=== PATIENT | male | born 1955 | race Caucasian/White ===

== ENCOUNTER → 2025-04-06 | Outpatient (CLI) | payer MEDICARE, MEDICAID, SELFPAY ==
--- NOTE | 2025-04-06 07:30 | XR_ITS ---
Examination: CT chest, without intravenous contrast. Sagittal and coronal 2-D reconstructions. Exam date and time: August 23, 755 hours Comparison April 23, 2021 INDICATIONS: Diagnosis malignant neoplasm upper lobe right bronchus, shortness of breath, 9 mm pulmonary nodule right upper lobe 6 mm pulmonary nodule left lower lobe on CT chest April 23, 2021 CTDI:vol (mGy) 6.43 DLP: (mGycm) 266 Technique: Multiple 3.0 mm axial sections of the chest to been obtained. Bone and lung density settings are obtained. Sagittal and coronal 2-D reconstructions have been obtained. Low dose protocols were performed. One or more of the following dose reduction techniques were used; automated exposure control, adjustment of the mA and/or KV according to patient size, use of iterative reconstruction technique. Findings: No thoracic aortic aneurysmal dilatation Multiple pretracheal lymph nodes, the largest 12 mm Pulmonary artery segments are not enlarged Pulmonary mass with spiculated margins right upper lobe, at least 4.7 x 4.6 cm 2 mm pulmonary nodule left upper lobe image 104 8 mm pulmonary nodule in the right upper lobe image 225 6 mm pulmonary nodule right middle lobe image 3 12 mm pulmonary nodule right lower lobe image 281 COPD with multiple areas of air space destruction No visualized liver splenic lesion No pancreatic mass 2 mm upper pole right renal calculus Prominent osteopenia IMPRESSION: COPD Pulmonary neoplasm right upper lobe 4.7 x 4.6 cm Multiple likely metastatic pulmonary nodules
== END | disposition home or self-care (01) ==
LOC: CCTX 07:22
PROVIDERS: PCP Family Medicine; Referring Provider Family Medicine; Visit Provider Family Medicine
DX: C34.11 Malignant neoplasm of upper lobe, right bronchus or lung (principal); J44.9 Chronic obstructive pulmonary disease, unspecified
CPT/HCPCS: 71250

== ENCOUNTER 2025-07-26 11:52 | Emergency (ER) | payer MEDICARE, MEDICAID, SELFPAY ==
[2025-07-26 11:57] VITALS: PULSE 79; RESP 18; O2SAT 99
--- NOTE | 2025-07-26 11:57 | EDNOTE_ITS ---
ED General RME/HPI General Chief complaint: General Adult/Misc Complain Stated complaint: TB Time Seen by Provider: 07/26/25 11:54 Arrival date/time: 07/26/25 11:52 CC: Needs chest x-ray HPI patient presents to the ER from [facility] where there is been reported outbreak scabies bedbugs and TB. Patient had a positive mantaux test and was sent to the emergency room via EMS for chest x-ray. Patient has no specific complaints denies fever chills hemoptysis weight loss or night sweats. No other complaints. Related Data Home Medications ?Medication ?Instructions ?Recorded ?Confirmed clozapine 100 mg tablet See Rx Instructions PO HS 04/19/25 Allergies Allergy/AdvReac Type Severity Reaction Status Date / Time No Known Allergies Allergy Verified 07/26/25 12:08 Review of Systems Review of Systems Narrative Review of Systems: GEN: No fever, no chills, no weight loss EYES: No discharge, no visual changes, no pain HEENT: No ear pain, no congestion, no sore throat PULM: No shortness of breath, no cough, no congestion CV: No chest pain, no dyspnea on exertion, no palpitations GI: No nausea, no vomiting, no diarrhea, no pain, no constipation : No frequency, no urgency, no dysuria MUSC/SKEL: No joint pain, no back pain SKIN: No rash PSYCH: No hallucinations, no depression HEME/LYMPH: No easy bleeding or bruising tendencies NEURO: No weakness, no headache Past Medical History Past Medical History NEUROLOGIC: Negative Neurological Disorders CARDIAC: Positive Cardiac Disorders, Myocardial Infarction (07/2019-transfer to [facility]) and Hypercholesterolemia; Negative Congestive Heart Failure RESPIRATORY: Positive Chronic Obstructive Pulmonary Disease (COPD) GASTROINTESTINAL: Negative Gastrointestinal Disorders GENITOURINARY: Negative Genitourinary Disorders or Renal Disease MUSCULOSKELETAL: Positive Musculoskeletal Disorders (gets tired easily when walking) ENDOCRINE: Negative Endocrine Disorders, Diabetes Mellitus Type 1 or Diabetes Mellitus Type 2 HEMATOLOGIC: Negative Blood Disorders PSYCHO/SOCIAL: Positive Psychiatric Problems, Schizophrenia and Bipolar Disorder OTHER HISTORY: Negative Blood Transfusions, Anesthesia Reactions or Cancer Surgical History SURGICAL: Negative Endocrine Surgery or Abdominal Surgery Social History SMOKING STATUS: Current some day smoker SUBSTANCE USE: does not use ED Exam Narrative Physical exam: [General: Not in any acute distress Head normocephalic HEENT: Within acceptable limits Neck is supple nontender Chest equal chest rise nontender to palpation Respiratory: Clear to auscultation no wheezes crackles or rubs CV: Rate rhythm is regular no murmurs rubs or clicks Abdomen is soft nontender no masses positive bowel sounds all 4 quadrants Back: No CVA tenderness no spinous process tenderness from cervical spine thoracic and lumbar spine Skin: Intact no petechiae rash induration ulceration or crepitus Extremities: Moving all extremity against resistance cap refill less than 2 seconds neurosensory intact Neuro: Awake alert oriented x3 Glascow coma 15 no focal deficits] Course Course Course Narrative: Chest x-ray shows a mass we will now do a CT of this patient he is informed and will wait. Patient has no symptoms. Quality Measures none Orders Category Date Time Status CT chest wo con Stat Exams 07/26/25 13:08 Taken XR chest 2V Stat Exams 07/26/25 11:57 Completed Vital Signs Vital signs: Vital Signs Temperature 97.0 F 07/26/25 12:06 Pulse Rate 88 07/26/25 12:06 Respiratory Rate 18 07/26/25 12:06 Blood Pressure 116/40 L 07/26/25 12:06 Pulse Oximetry (%) 98 07/26/25 12:06 Oxygen Delivery Method Room Air 07/26/25 12:06 Discharge Plan Plan Patient Disposition: HOME (Self Care) Prescriptions/Referrals Prescriptions/Med Rec: No Action clozapine 100 mg tablet See Rx Instructions PO HS Rx Instructions: 700mg orally bedtime; Referrals: Fuad Sosa MD [Primary Care Provider] - In 1 week Problem List Clinical Impression: Squamous cell carcinoma, Lung mass Patient/Caregiver Discharge Instructions Other Activity Instructions:: In March 2025 you had a biopsy done of the mass in your lung and that is shows you have cancer in your lungs please follow-up with your primary care doctor. Print Language: Pakistani Stand Alone Forms: Alanis Award Info., Patient Portal Info Letter PA/ADMINISTRATIVE ASSISTANT RECEPTIONIST Supervising Physician PA/ADMINISTRATIVE ASSISTANT RECEPTIONIST Supervising Physician: Jak Brand ENP [facility] Clinical Information Provided by: patient and EMS Medical Records reviewed [facility] and EMS Meds/Rx considered, not ordered None Labs/Rad/Tests considered, not ordered None Chronic Illness/Social Conditions which may negatively complicate care or outcome(s)-explain: None or not applicable EKG EKG not done Labs Labs: none Imaging Imaging interpretation: interpreted by me
--- NOTE | 2025-07-26 11:57 | XR_ITS ---
EXAMINATION: PA lateral chest 2 views TECHNIQUE: Upright PA lateral chest 2 views Date and time: July 26, 2025, 12:08 p.m., comparison April 21, 2025 INDICATIONS: Positive TB skin test FINDINGS: Pulmonary mass right upper lobe again noted, please see the CT chest April 06, 2025 COPD with scarring throughout the lungs Normal heart size Prominent osteopenia IMPRESSION: COPD with scarring throughout the lungs Pulmonary mass right upper lobe again noted Tuberculosis could not be excluded based on this plain chest film, consider repeat CT chest without contrast follow-up
[2025-07-26 12:00] VITALS: BMI 19.9
[2025-07-26 12:06] VITALS: BP 116/40; PULSE 88; RESP 18; TEMP 36.1; O2SAT 98
[2025-07-26 12:07] VITALS: BMI 19.9
--- NOTE | 2025-07-26 13:08 | XR_ITS ---
Examination: CT chest, without intravenous contrast. Sagittal and coronal 2-D reconstructions. Exam date and time: July 26, 2025, 1321 hours, comparison April 21, 2025 INDICATIONS: CT chest April 06, 2025 multiple pretracheal lymph nodes, pulmonary mass spiculated margins right upper lobe 4.7 x 4.6 cm, 2 mm pulmonary nodule left upper lobe 8 mm pulmonary nodule right upper lobe 6 mm pulmonary nodule right middle lobe 12 mm pulmonary nodule right lower lobe INDICATIONS: Positive TB skin test, mass noted on chest x-ray today, noted on prior chest films CTDI:vol (mGy) 6.27 DLP: (mGycm) 259 Technique: Multiple 3.0 mm axial sections of the chest to been obtained. Bone and lung density settings are obtained. Sagittal and coronal 2-D reconstructions have been obtained. Low dose protocols were performed. One or more of the following dose reduction techniques were used; automated exposure control, adjustment of the mA and/or KV according to patient size, use of iterative reconstruction technique. Findings: No thoracic aortic aneurysmal dilatation Progression of right tracheobronchial pretracheal lymphadenopathy compared to the March examination Pulmonary artery segments are not enlarged Spiculated pulmonary mass right upper lobe now measures 5.6 x 5.7 cm compared to 4.7 x 4.3 level today. Complicated ovarian ventricular body Nulytely grouping to Luvinsta grade 3-grade 3 .6 cm on April 06, 2025 exam New bilateral pulmonary nodules subcentimeter COPD with multiple areas of airspace distraction No pneumonia characteristic for active tuberculosis No visualized liver or splenic lesion No hydronephrosis Mild thoracic spondylosis IMPRESSION: Enlarging spiculated pulmonary mass right upper lobe, 5.6 x 5.7 cm compared to 4.7 x 4.6 cm on April 06, 2025 exam Progression of mediastinal lymphadenopathy compared with April 06, 2025 No radiographic findings of active tuberculosis
[2025-07-26 14:33] VITALS: BP 108/57; PULSE 85; RESP 18; TEMP 36.6; O2SAT 98
[2025-07-26 16:26] VITALS: BP 110/50; PULSE 92; RESP 18; TEMP 36.6; O2SAT 98
--- NOTE | 2025-07-26 17:56 | PC.NURSE ---
Report called and given to Alyson at [facility] at [phone] and will return to facility, Alyson agreed.
[2025-07-26 19:41] VITALS: BP 117/74; PULSE 93; RESP 14; TEMP 37; O2SAT 99
== END 2025-07-26 19:48 | disposition home or self-care (01) ==
PROVIDERS: Emergency Provider Family Medicine; PCP Family Medicine
DX: B86 Scabies (principal)
CPT/HCPCS: 71046; 71250; 99283

== ENCOUNTER 2025-08-17 09:39 | Outpatient (RCR) | payer MEDICARE, MEDICAID, SELFPAY ==
--- NOTE | 2025-08-10 10:34 | CTCCONSULT_ITS ---
Patient: TIFFANIE JEFFRIES : 1955 MR#: [id number] Page 2 of 3 CONSULTATION NOTE DATE OF CONSULTATION: 08/10/2025 NAME: TIFFANIE JEFFRIES ACCOUNT: [id number] : 1955 AGE: 70 REFERRING PHYSICIAN: Fuad Sosa MD PRIMARY PHYSICIAN: Fuad Sosa MD REASON FOR VISIT: Squamous cell lung cancer ONCOLOGY HISTORY: DIAGNOSIS: Malignant neoplasm of upper lobe, right bronchus or lung [ICD10] C34.11 DATE OF DIAGNOSIS: 04/21/2025 STAGE/TNM: IIIB T4 N2 M0 TREATMENT HISTORY: Care?Plan Start?Date Cycle Day Intent HISTORY OF PRESENT ILLNESS: 70-year-old male with new diagnosis of right lung cancer. Patient quit smoking in April. Patient lives in assisted living and was living in group before. Since diagnosis in March 2025 patient is yet to start any treatment. Patient have cough at baseline. 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 cloZAPine - 100 mg 1 tab Daily?Palabra Meds? Medications Last Reconciled by Chioma Raphael RN on 08/10/2025 ALLERGIES: No Known Drug Allergies REVIEW OF SYSTEMS: A complete 14-point review of systems was performed and is negative except as noted in interval history. PHYSICAL EXAMINATION: VITAL SIGNS: Temperature?96.7, B/P?100/59, Height?71?inches, Oxygen?Saturation?100% Weight?127?lbs PAIN: 0 - No pain ECOG Performance Status: 1 - Symptomatic; ambulatory; restricted in strenuous activity GENERAL APPEARANCE: Appears well, in no apparent distress, appropriately interactive. HEENT: Normocephalic, no temporal wasting, normal conjunctiva, no scleral icterus, normal hearing, lips without lesions, neck normal range of motion. CARDIOVASCULAR: Not assessed. PULMONARY: Normal respiratory effort, no respiratory distress or use of accessory muscles, speaking in full sentences, no tachypnea. EXTREMITIES: No pedal edema or cyanosis. SKIN: Normal skin appearance. NEUROLOGIC: Alert and oriented x4. PSHYCHIATRIC: Appropriate affect, mood normal, behavior normal, intact thought and speech. LABORATORY DATA: I have personally reviewed and interpreted each of the patient?s relevant lab tests, abnormal findings are below: Date ASSESSMENT/PLAN: At least stage IIIb squamous cell lung cancer Patient has multiple lung nodules in the right lung and 1 nodule 2 mm in the left lung high Because of the multiple nodules in the same lung patient have at least stage IIIb cancer Left lung nodule is very small and may or may not be malignant Will do restaging with PET CT scan and MRI brain Patient also have paratracheal lymph node on the same side No other lymphadenopathy was noted on the last CT scan in March 2025 Discussed with radiation oncology will be a good candidate to do chemo RT followed with maintenance immunotherapy if no progression Stat referral to radiation oncology Port catheter placement RTC in 3 weeks ORDERS: Order # Description [id number] Comprehensive Metabolic Panel - 12 + CBC with Auto Diff [id number] Ferritin + Vitamin B-12 + Iron Panel + Folic Acid; Serum [id number] MRI + Brain + With Contrast [id number] Initial PET/CT of Skull to Mid-Thigh [id number] Follow Up 3 Week RETURN TO CLINIC: I reviewed the diagnosis, prognosis, and recommended treatment/procedure options with the patient (and/or their legal surgical device sales representative), including the potential benefits, risks, side effects and alternative therapies. We also discussed the option of no treatment and the possibility of clinical trial participation, if applicable. All questions were addressed, and they demonstrated understanding. They provided informed consent to proceed with the proposed plan of care. BILLING AND COMPLIANCE: I reviewed external records from providers outside my specialty as summarized above. I spent a total of 50 minutes on this patient?s care on the day of their visit excluding time spent related to any billed procedures. This time includes time spent with the patient as well as time spent documenting in the medical record, reviewing patients records and tests, obtaining history, placing orders, communicating with other healthcare professionals, counseling the patient, family or caregiver, and/or care coordination for the diagnoses above. Electronically Signed by: Edwar Ellis MD T: 10:32 AM CC: PCP: Fuad Sosa Referring: Fuad Sosa This document was completed utilizing speech recognition software. Grammatical errors, random word insertions, pronoun errors, and incomplete sentences are an occasional consequence of this system due to software limitations, ambient noise, and hardware issues. Any formal questions or concerns about the content, text or information contained within the body of this dictation should be directly addressed to the provider for clarification.
== END 2025-08-28 23:59 | disposition home or self-care (01) ==
LOC: SCTC 09:39
PROVIDERS: PCP Family Medicine; Referring Provider Family Medicine; Visit Provider Radiology Therapeutic Radiology
DX: C34.11 Malignant neoplasm of upper lobe, right bronchus or lung (principal); R91.1 Solitary pulmonary nodule
CPT/HCPCS: 77470; 99213; G0463

== ENCOUNTER 2025-09-05 08:13 | Outpatient (CLI) | payer MEDICARE, MEDICAID, SELFPAY ==
[2025-09-05] VITALS (15 sets, daily range): BP systolic 113–136; BP diastolic 48–61; PULSE 66–89; RESP 13–21; TEMP 36.3–36.4; O2SAT 96–100; BMI 19.1
[2025-09-05 08:43] LABS: Basophils # (Auto) 0.1 Thou/mm3 (0.0-0.2); Basophils % (Auto) 1 % (0-2.5); Eosinophils # (Auto) 0.4 Thou/mm3 (0.0-0.5); Eosinophils % (Auto) 2 % (0-10); Hematocrit 36.8 % (41.0-53.0); Hemoglobin 11.7 g/dL (13.5-16.0); Immature Granulocytes Auto 0.10 Thou/mm3 (0.00-0.00); Lymphocytes # (Auto) 1.6 Thou/mm3 (1.0-4.8); Lymphocytes % (Auto) 8 % (10-50); Mean Corpuscular HGB Conc 31.8 g/dl (31.0-37.0); Mean Corpuscular Hemoglobin 30.6 pg (25.0-35.0); Mean Corpuscular Volume 96 fL (80-100); Monocytes # (Auto) 1.4 Thou/mm3 (0.0-0.8); Monocytes % (Auto) 7 % (0-12); Neutrophils # (Auto) 15.6 Thou/mm3 (1.8-7.7); Neutrophils % (Auto) 81 % (37-80); Nucleated Red Blood Cell # 0.00 Thou/mm3 (0.00-0.00); Nucleated Red Blood Cell % 0 /100 WBC (0); Platelet Count 437 Thou/mm3 (140-440); RDW Standard Deviation 49.3 fL (35.1-43.9); Red Blood Count 3.82 Miln/mm3 (4.50-5.90); White Blood Count 19.2 Thou/mm3 (3.8-10.6)
[2025-09-05 09:14] LABS: INR 1.0 (0.9-1.3); Partial Thromboplastin Time 30.5 Seconds (22.0-36.0); Prothrombin Time 10.6 Seconds (9.0-12.2)
[2025-09-05] MEDS: SODIUM CHLORIDE 0.9% 500 ML 500 ML 999 ML IV (10:30)
--- NOTE | 2025-09-05 11:00 | XR_ITS ---
Exam: Fluoroscopic and ultrasound-guided right IJ port placement. Date: 09/05/2025, 10:20 a.m. Indication: Access for chemotherapy. Fluoroscopy time 1. 4 minutes Dose: 5.64 Technique: After a discussion of risks and benefits informed consent was obtained from the patient. Patient was brought to the angiography suite and placed supine on the exam table. Preliminary ultrasound evaluation showed the right IJ to be patent. The skin overlying the right neck and upper chest was cleaned and draped in normal sterile surgical fashion. 20 cc's of 1% lidocaine was used for local anesthesia. Conscious sedation was begun with direct nursing supervision. Using ultrasound guidance access to the IJ was obtained with a micropuncture needle. An 0.018 wire was advanced through the needle into the SVC and the needle was withdrawn. A 5 Mosotho micropuncture change sheath was advanced over the wire, and the wire removed. The sheath was capped. A 5 cm incision was made over right chest. Small pouch was created with a combination of sharp and blunt dissection. The port and catheter tubing were attached to the tunneling device and pulled underneath the skin and exiting at the right IJ access site. Right IJ 5 inch sheath was replaced with a 7 Mosotho peel-away sheath. Catheter was advanced through the peel-away sheath and peel-away sheath was removed. Distal catheter tip was appropriately positioned at the cavoatrial junction. The port pocket was closed with deep interrupted sutures using 2-0 Vicryl and superficial running sutures utilized 3-0 Vicryl. IJ access site was closed with 3-0 Vicryl and Dermabond glue Port flushed and aspirated easily and is ready for use. Impression: Successful placement of right IJ port as above with distal tip at the caval atrial junction Catheter is ready for use.
[2025-09-05] MEDS: SODIUM CHLORIDE 0.9% 500 ML 500 ML 250 ML IV (11:07)
[2025-09-05] MEDS: MIDAZOLAM INJ 1 MG/ML VIAL 2 ML IV (11:13)
[2025-09-05] MEDS: HEPARIN SOD LOCK SYR 100 UNIT/ML 500 UNIT STFIELD (11:13)
[2025-09-05] MEDS: LIDOCAINE INJ PF 1% 30 ML VIAL INFL (11:13)
[2025-09-05] MEDS: fentaNYL CIT INJ 50 mCg/ML AMP 2ML IVP (11:13)
== END 2025-09-05 12:30 | disposition home or self-care (01) ==
PROVIDERS: Radiology Diagnostic Radiology; PCP Family Medicine; Referring Provider Internal Medicine Hematology & Oncology; Visit Provider Internal Medicine Hematology & Oncology
DX: C34.11 Malignant neoplasm of upper lobe, right bronchus or lung (principal)
CPT/HCPCS: 36571; 36415; 76937; 77001; 85025; 85610; 85730; 99152; A4649; C1788; J0689; J0690; J1642; J2250; J3010; J3490; J7050; J7999

== ENCOUNTER → 2025-09-08 | Outpatient (CLI) | payer MEDICARE, MEDICAID, SELFPAY ==
--- NOTE | 2025-09-08 08:00 | XR_ITS ---
3 view T1W MR imaging of the brain during gadolinium contrast enhancement. Study was performed on 09/08/2025 at 9:53 a.m. Clinical indication malignant neoplasm of the right upper lobe rule out metastatic disease. Patient also has schizophrenia. FINDINGS: 1. Many of these images are partially obscured by patient motion. However overall I believe that an adequate look is been obtained throughout the cerebrum. I do not see any evidence of any mass or any possible malignancies anywhere in the cerebrum and cerebellum or brainstem on any of these projections. The paranasal sinuses and orbits appear essentially normal as does the pituitary gland. IMPRESSION: 1. Sagittal coronal and axial T1w images after gadolinium contrast enhanced do not show any evidence of any significant abnormalities, and specifically no evidence of metastatic disease is identified
== END | disposition home or self-care (01) ==
PROVIDERS: PCP Family Medicine; Referring Provider Internal Medicine Hematology & Oncology; Visit Provider Internal Medicine Hematology & Oncology
DX: C34.11 Malignant neoplasm of upper lobe, right bronchus or lung (principal)
CPT/HCPCS: 70552; A9577

== ENCOUNTER → 2025-09-08 | Outpatient (CLI) | payer MEDICARE, MEDICAID, SELFPAY ==
[2025-09-08 08:56] LABS: Basophils # (Auto) 0.1 Thou/mm3 (0.0-0.2); Basophils % (Auto) 0 % (0-2.5); Eosinophils # (Auto) 0.3 Thou/mm3 (0.0-0.5); Eosinophils % (Auto) 1 % (0-10); Hematocrit 36.6 % (41.0-53.0); Hemoglobin 11.4 g/dL (13.5-16.0); Immature Granulocytes Auto 0.13 Thou/mm3 (0.00-0.00); Lymphocytes # (Auto) 1.1 Thou/mm3 (1.0-4.8); Lymphocytes % (Auto) 6 % (10-50); Mean Corpuscular HGB Conc 31.1 g/dl (31.0-37.0); Mean Corpuscular Hemoglobin 29.8 pg (25.0-35.0); Mean Corpuscular Volume 96 fL (80-100); Monocytes # (Auto) 1.4 Thou/mm3 (0.0-0.8); Monocytes % (Auto) 8 % (0-12); Neutrophils # (Auto) 15.8 Thou/mm3 (1.8-7.7); Neutrophils % (Auto) 85 % (37-80); Nucleated Red Blood Cell # 0.00 Thou/mm3 (0.00-0.00); Nucleated Red Blood Cell % 0 /100 WBC (0); Platelet Count 398 Thou/mm3 (140-440); RDW Standard Deviation 49.0 fL (35.1-43.9); Red Blood Count 3.83 Miln/mm3 (4.50-5.90); White Blood Count 18.7 Thou/mm3 (3.8-10.6)
[2025-09-08 09:21] LABS: Alanine Aminotransferase 13 U/L (10-49); Albumin, Serum 4.4 gm/dL (3.4-4.8); Albumin/Globulin Ratio 1.6 (1.2-2.2); Alkaline Phosphatase 115 U/L (46-116); Anion Gap 9 (7-16); Aspartate Amino Transferase 16 U/L (0-34); BUN/Creatinine Ratio 16 Ratio (12-20); Bilirubin,Total 0.4 mg/dL (0.3-1.2); Blood Urea Nitrogen 14 mg/dL (9-23); Calcium 9.1 mg/dL (8.3-10.6); Calcium (Corrected) 9.1 mg/dL (8.5-10.1); Carbon Dioxide 27.8 mMol/L (20.0-31.0); Chloride 104 mMol/L (98-107); Creatinine (Component) 0.9 mg/dL (0.6-1.3); Globulin 2.7 gm/dL (2.3-3.5); Glucose 136 mg/dL (74-106); Osmolality,Calculated 283 (275-295); Potassium 4.5 mMol/L (3.4-5.1); Sodium 141 mMol/L (136-145); Total Protein 7.1 gm/dL (5.7-8.2); eGFR > 60 See Note
== END | disposition home or self-care (01) ==
PROVIDERS: PCP Family Medicine; Referring Provider Internal Medicine Hematology & Oncology; Visit Provider Internal Medicine Hematology & Oncology
DX: C34.11 Malignant neoplasm of upper lobe, right bronchus or lung (principal)
CPT/HCPCS: 36415; 80053; 85025

== ENCOUNTER → 2025-09-13 | Outpatient (CLI) | payer MEDICARE, MEDICAID, SELFPAY ==
--- NOTE | 2025-09-13 10:15 | XR_ITS ---
EXAMINATION: PET/CT FUSION SKULL TO THIGH EXAM DATE AND TIME: September 13, 2025, 1110 hours, comparison CT chest July 26, 2025, CT chest April 06, 2025, INDICATIONS: Diagnosis malignant neoplasm right upper lobe, 5.6 x 5.[address] chest July 26, 2025, assess for metastatic disease, staging CTDI:vol (mGy) 2.07 DLP: (mGycm) 189.07 PROCEDURE: 16.7 mCi FDG was administered intravenously To allow for distribution and uptake of radiotracer, the patient was allowed to rest quietly in a shielded room. Imaging was performed on an integrated 16-slice PET/CT scanner, with scanning from the skull base to the mid thigh. Serum blood glucose at the time of the injection was measured 133 mg/dL. CT scanning was performed without oral or intravenous contrast material. FINDINGS: Head and Neck: There is no jimmie hypermetabolism in the neck. The visualized portions of the brain are normal in appearance on CT. Chest: Intensely hypermetabolic pulmonary mass right upper lobe, spiculated margins 6.2 x 7.6 cm invading the right mediastinum in the tracheobronchial jimmie complex Weakly hypermetabolic 16 mm right tracheobronchial lymph node Weakly hypermetabolic 17 mm pretracheal lymph node 25 x 22 mm hypermetabolic mass image 101 contiguous with the anterior mediastinum Numerous hypermetabolic pulmonary nodules throughout the lungs, poorly visualized because of continue patient motion, please see the CT chest report July 26, 2025 Hypermetabolic upper right lobe liver lesion, axial image 123, 16 x 12 mm Hypermetabolic 10 mm left internal iliac lymph node Abdomen and Pelvis: There is no jimmie hypermetabolism in retroperitoneal or pelvic chains. The spleen is normal in size and FDG avidity. Musculoskeletal: Marrow uptake is within normal range. IMPRESSION: Patient's cooperation limited, continue patient motion, significantly limiting the study Intensely hypermetabolic pulmonary mass right upper lobe 6.2 x 7.6 cm compared with 5.6 x 5[address] chest July 26, 2025, numerous poorly visualized weakly hypermetabolic pulmonary nodules, consider repeat high-resolution CT chest Hypermetabolic mediastinal lymphadenopathy 16 x 12 mm hypermetabolic upper right lobe liver lesion, consider MRI liver follow-up pre and postcontrast Hypermetabolic 10 mm left internal iliac lymph node, recommend high-resolution CT abdomen/pelvis post intravenous contrast follow-up
[2025-09-13 14:39] LABS: Ferritin 242 ng/mL (10.5-307.3); Iron 16 mcg/dL (65-175); Percent Iron Saturation 6 % (20-55); Total Iron Binding Capacity 246 mcg/dL (250-425); Unsaturated Iron Binding 230 (225-295)
[2025-09-13 14:46] LABS: Folate 14.83 ng/mL (>5.38); Vitamin B12 395 pg/mL (211-911)
== END | disposition home or self-care (01) ==
LOC: CDIM 10:02 → SCTO 11:40
PROVIDERS: PCP Internal Medicine Hematology & Oncology; Referring Provider Internal Medicine Hematology & Oncology; Visit Provider Radiology Diagnostic Radiology
DX: R91.8 Other nonspecific abnormal finding of lung field (principal); R59.0 Localized enlarged lymph nodes; K76.9 Liver disease, unspecified; C34.11 Malignant neoplasm of upper lobe, right bronchus or lung
CPT/HCPCS: 36415; 78815; 82607; 82728; 82746; 83540; 83550; A9595

== ENCOUNTER 2025-09-14 11:06 | Outpatient (RCR) | payer MEDICARE, MEDICAID, SELFPAY ==
--- NOTE | 2025-09-14 14:53 | CTCSNOTE_ITS ---
[facility] [address] [place], [place] [address] CT Simulation Note Date: 09/14/2025 MR# [id number] Name: TIFFANIE JEFFRIES : 1955 (A) DIAGNOSIS: C34.11 Malignant neoplasm of upper lobe, right bronchus or lung (B) Patient was placed in supine position and used Vac-Mike for immobilization purposes. (C) CT slices included chest (D) VMAT Will be needed for maximum sparing of adjacent normal critical structures. (E) Patient tolerated the simulation well and left the room in good condition. Electronically signed by: Elias Key MD, STEWARTR 09/14/2025 2:50 PM
== END 2025-09-28 23:59 | disposition home or self-care (01) ==
LOC: SCTC 11:06
PROVIDERS: PCP Family Medicine; Referring Provider Family Medicine; Visit Provider Internal Medicine Hematology & Oncology
DX: C34.11 Malignant neoplasm of upper lobe, right bronchus or lung (principal)
CPT/HCPCS: 77014; 77290; 77300; 77301; 77334; 77338; 77387; 99212; G0463